=== PATIENT | male | born 1950 | race Caucasian/White ===

== ENCOUNTER 2017-09-28 00:03 | Emergency (ER) | payer MEDICARE, BC ==
[2017-09-28] MEDS ORDERED: DIPHENHYDRAMINE 50 MG INJ IM (01:30)
[2017-09-28] MEDS: DIPHENHYDRAMINE 50 MG INJ IV (01:31)
[2017-09-28] MEDS: METHYLPREDNISOLONE 125 MG INJ IV (01:32)
[2017-09-28] MEDS: ONDANSETRON 4 MG INJ IV (01:32)
[2017-09-28] MEDS: FAMOTIDINE 20 MG TAB PO (01:32)
[2017-09-28] MEDS: SOD CHLORIDE 0.9% 500 ML IV (01:33)
[2017-09-28 01:54] LABS: ADD MAN DIFF? NO
[2017-09-28 01:57] LABS: WHITE BLOOD COUNT 5.9 10^3/ul (4.8-10.8)
[2017-09-28 01:57] LABS: BASOPHILS % 0.3 % (0.0-2.0); EOSINOPHILS # 0.1 10^3/ul (0.0-0.5); EOSINOPHILS % 1.5 % (0.0-7.0); HEMATOCRIT 44.6 % (42.0-52.0); HEMOGLOBIN 14.4 g/dl (14.0-18.0); LYMPHOCYTES # 1.9 10^3/ul (0.8-2.9); LYMPHOCYTES % 31.7 % (15.0-51.0); MEAN CORPUSCULAR HEMOGLOBIN 29.1 pg (29.0-33.0); MEAN CORPUSCULAR HGB CONC 32.3 g/dl (32.0-37.0); MEAN CORPUSCULAR VOLUME 90.3 fl (82.0-101.0); MEAN PLATELET VOLUME 11.2 fl (7.4-10.4); MONOCYTE # 0.4 10^3/ul (0.3-0.9); NEUTROPHIL # 3.5 10^3/ul (1.6-7.5); NEUTROPHILS % 59.2 % (39.0-77.0); PLATELET COUNT 226 10^3/UL (140-415); RED BLOOD COUNT 4.94 10^6/ul (4.70-6.10); RED CELL DISTRIBUTION WIDTH 12.7 % (11.5-14.5)
[2017-09-28 02:21] LABS: ANION GAP 12 (8-16); BLOOD UREA NITROGEN 28 mg/dl (7-20); CALCIUM 9.3 mg/dl (8.4-10.2); CARBON DIOXIDE 27 mmol/L (21-31); CHLORIDE 110 mmol/L (97-110); CREATININE 1.05 mg/dl (0.61-1.24); GLUCOSE 99 mg/dl (70-220); POTASSIUM 4.4 mmol/L (3.5-5.1); SODIUM 145 mmol/L (135-144)
== END 2017-09-28 03:43 | disposition home or self-care (01) ==
LOC: E/R 00:03
DX: K13.0 Diseases of lips (principal); L53.9 Erythematous condition, unspecified
CPT/HCPCS: 36415; 80048; 85025; 96374; 96375; 99284-25